=== PATIENT | female | born 1990 | race Caucasian/White ===

== ENCOUNTER 2023-12-19 10:20 | Observation (INO) | payer OTHER, SELFPAY ==
[2023-12-19] VITALS (40 sets, daily range): BP systolic 107–120; BP diastolic 66–78; PULSE 51–121; O2SAT 94–98; BMI 42.0
[2023-12-19 10:57] LABS: Glucose Point of Care 208 mg/dl (65-105)
[2023-12-19 10:57] LABS: Glucose Point of Care 230 mg/dl (65-105)
[2023-12-19] MEDS: INSULIN ASPART (*BKC) 100 UNITS/ML SUB-Q ×2 (11:03→12:13)
--- NOTE | 2023-12-19 11:05 | PC.NURSE ---
1030--Pt. states she did not check fasting glucose at home today r/t she ran out of strips. She states she had breakfast at approx. 0830 this am of 1 waffle and syrup. Accucheck at 1030 230 mg/dl, upon repeat check it was 208 mg/dl.
--- NOTE | 2023-12-19 11:08 | PC.NURSE ---
4536--Phone call to Dr. Duarte re: accucheck and fhr tracing. Orders to po hydrate, and give 5 units lispro subq X1 dose, then recheck sugar 1 hr. after insulin.
--- NOTE | 2023-12-19 11:48 | LDADM ---
This patient, Arabella Barrett, was admitted to Labor/Delivery/Recovery 118 on 12/19/23 at 10:20. Plans for labor, pain management and were discussed with patient. Patient/family oriented to hospital policies and general routines including ID bracelet, bed and alarms, visiting hours, pain management, procedures, bathroom and other care routines, personal items, smoking policy, room service/diet and guest tray routines, security routines, and visiting hours. Patient/Family are encouraged to report perceived risks to care and to ask questions if they do not understand what they are told or what they should do. See OBIX for further documentation.
[2023-12-19 12:04] LABS: Glucose Point of Care 173 mg/dl (65-105)
--- NOTE | 2023-12-19 12:44 | PC.NURSE ---
1203--Dr. Duarte on unit, notified of accucheck of 173 mg/dl. Orders for Lispro 4u subq X1 dose and recheck blood sugar an hour later.
[2023-12-19 13:17] LABS: Glucose Point of Care 93 mg/dl (65-105)
--- NOTE | 2023-12-21 10:41 | PM.OBTRLD ---
OB - Triage/Final Diagnosis Visit Information Comments/Additional reasons for admission: I have assessed the risk for this patient, Arabella Barrett, and determined that she would benefit from observation care. Evaluation Laboratory results: Laboratory Tests 12/19/23 12/19/23 12/19/23 10:37 10:39 12:02 POC Capillary Glucose 230 H 208 H 173 H 12/19/23 13:14 POC Capillary Glucose 93 Final Diagnosis (1) Hyperglycemia: Code(s): R73.9 - Hyperglycemia, unspecified Status: Acute (2) Gestational diabetes: Code(s): O24.419 - Gestational diabetes mellitus in , unspecified control Status: Acute
== END 2023-12-19 13:30 | disposition home or self-care (01) ==
PROVIDERS: Student in an Organized Health Care Education/Training Program; Admitting Provider Obstetrics & Gynecology; Visit Provider Obstetrics & Gynecology
DX: O24.419 Gestational diabetes mellitus in pregnancy, unspecified control (principal); Z3A.01 Less than 8 weeks gestation of pregnancy
CPT/HCPCS: 82948; G0378; G0379; J1815

== ENCOUNTER 2024-01-02 17:59 | Outpatient (CLI) | payer OTHER, SELFPAY ==
[2024-01-02] VITALS (7 sets, daily range): BP systolic 119–147; BP diastolic 78–91; PULSE 80–99
[2024-01-02 19:10] LABS: Basophils Percent Auto 0.3 % (0.2-1.2); Eosinophils Percent Auto 0.4 % (0-4.4); Hematocrit 37.8 % (37.0-47.0); Hemoglobin 12.6 g/dL (12.0-15.0); Immature Granulocyte Absolute 0.02 K/mm3 (0.00-0.031); Immature Granulocyte Percent A 0.3 % (0-0.5); Lymphocytes Absolute Auto 1.99 K/mm3 (0.9-3.2); Lymphocytes Percent Auto 25.1 % (18.3-44.2); Mean Corpuscular HGB Conc 33.3 g/dl (32-36); Mean Corpuscular Hemoglobin 28.4 pg (26-34); Mean Corpuscular Volume 85.3 fl (80-100); Monocytes Absolute Auto 0.4 K/mm3 (0.1-0.6); Monocytes Percent Auto 4.9 % (2.6-8.5); Neutrophils Absolute Auto 5.5 K/mm3 (1.3-6.7); Platelet Count Result 184 k/mm3 (150-375); Red Blood Count 4.43 M/mm3 (4.2-5.4); Red Cell Distribution Width 14.6 % (11.5-14.5); White Blood Count 7.9 K/mm3 (4.5-10.0)
[2024-01-02 19:18] LABS: Alanine Aminotransferase 44 U/L (6-35); Albumin Level 3.9 g/dL (3.5-5.1); Alkaline Phosphatase 151 U/L (38-126); Anion Gap 9 mmol/L (4-12); Aspartate Amino Transferase 41 U/L (14-36); Bilirubin,Total 0.5 mg/dL (0.2-1.3); Blood Urea Nitrogen 13 mg/dL (7-17); Calcium 8.9 mg/dL (8.4-10.2); Carbon Dioxide 20 mmol/L (22-30); Chloride 107 mmol/L (98-107); Estimated Glomerular Filt Rate > 60; Glucose 85 mg/dL (65-110); Potassium 4.1 mmol/L (3.4-5.0); Sodium 136 mmol/L (137-145)
[2024-01-02 19:24] LABS: Appearance Urine Clear (Clear); Bilirubin Urine Negative (Negative); Blood Urine Negative (Negative); Color Urine Yellow (Yellow); Glucose Urine UA Negative (Negative); Ketones Urine 3+ mg/dL (Negative); Leukocyte Esterase Ur Negative LEU/UL (Negative); Nitrate Urine Negative (Negative); Protein Urine Negative (Negative); Specific Grav Ur 1.013 (1.001-1.035); pH Urine 6.5 (5.0-9.0)
[2024-01-02 19:37] LABS: Add Urine Microscopic? NO
[2024-01-02 19:46] LABS: Total Protein Urine Random < 5 mg/dL; Ur Ttl Prot Creatinine Ratio < 0.09 mg/mg (0-0.20)
== END 2024-01-02 20:00 | disposition home or self-care (01) ==
LOC: ANHOBOP 18:03 → ANHOBPP 18:04
PROVIDERS: Obstetrics & Gynecology; Visit Provider Student in an Organized Health Care Education/Training Program
DX: O13.9 Gestational [pregnancy-induced] hypertension without significant proteinuria, unspecified trimester (principal)
CPT/HCPCS: 36415; 59025; 80053; 81003; 82570; 84156; 84550; 85025; 99199

== ENCOUNTER 2024-01-07 08:21 | Outpatient (RCR) | payer BC, MEDICAID, OTHER, SELFPAY ==
[2023-11-17 17:45] VITALS: BP 107/65; PULSE 80
[2023-11-20 17:04] VITALS: BP 103/66; PULSE 86
[2023-11-26 15:22] VITALS: BP 124/69; PULSE 80
[2023-11-30 16:44] VITALS: BP 114/78; PULSE 85
[2023-12-04 15:25] VITALS: BP 127/76; PULSE 94
[2023-12-08 16:34] VITALS: BP 109/71; PULSE 80
[2023-12-14 11:16] VITALS: BP 119/81; PULSE 105
[2023-12-23 15:00] VITALS: BP 118/78; PULSE 86
[2023-12-26 11:25] VITALS: BP 112/72; PULSE 95
[2024-01-02 16:21] VITALS: BP 142/83; PULSE 85
--- NOTE | ~2024-01-07 | US_ITS ---
US OB limited w BPP DATE: 12/26/2023 11:22 INDICATION: Heart decelerations. Gestational diabetes mellitus. Check ROGERS. 37 weeks 4 days estimated gestational age. TECHNIQUE: Real-time and color flow imaging and Doppler analysis COMPARISON: None FINDINGS: Live alarcon intrauterine gestational fetus in longitudinal lie, vertex presentation with heart rate of 150 bpm. Anterior placenta. Subjectively normal amount of amniotic fluid. Deepest amniotic fluid pocket measures 3.6 cm. Amniotic fluid index measures 13.7 cm, within normal range (5th percentile ROGERS: 7.3 cm; 95th percenti le ROGERS: 23.9 cm). BIOPHYSICAL PROFILE reported by binder technician: breathin out of 2 movement: 2 out of 2 tone: 2 out of 2 Amniotic fluid pocket: 2 out of 2 Total score: 8 out of 8 IMPRESSION: Normal biophysical profile score of 8 out of 8 Amniotic fluid index measures 13.7 cm, within normal range Reviewed, dictated and finalized at [facility]. Reviewed, dictated and finalized at location A.
[2024-01-07 08:52] VITALS: BP 118/71; PULSE 81
== END 2024-02-15 23:59 | disposition home or self-care (01) ==
LOC: ANHOBOP 08:21
PROVIDERS: Visit Provider Student in an Organized Health Care Education/Training Program
DX: O24.419 Gestational diabetes mellitus in pregnancy, unspecified control (principal); Z3A.32 32 weeks gestation of pregnancy; Z3A.33 33 weeks gestation of pregnancy; Z3A.34 34 weeks gestation of pregnancy; Z3A.35 35 weeks gestation of pregnancy; Z3A.37 37 weeks gestation of pregnancy; Z3A.38 38 weeks gestation of pregnancy; Z3A.39 39 weeks gestation of pregnancy
CPT/HCPCS: 59025; 76815; 76819

== ENCOUNTER 2024-01-07 08:57 | Outpatient (CLI) | payer OTHER, SELFPAY ==
[2024-01-07 09:21] LABS: Hematocrit 36.8 % (37.0-47.0); Hemoglobin 12.2 g/dL (12.0-15.0); Immature Platelet Fraction Pct 14.9 % (0.9-11.2); Mean Corpuscular HGB Conc 33.2 g/dl (32-36); Mean Corpuscular Hemoglobin 28.2 pg (26-34); Mean Corpuscular Volume 85.2 fl (80-100); Mean Platelet Volume 13.2 fl (7.4-10.4); Platelet Count Result 173 k/mm3 (150-375); Red Blood Count 4.32 M/mm3 (4.2-5.4); Red Cell Distribution Width 14.7 % (11.5-14.5); White Blood Count 6.9 K/mm3 (4.5-10.0)
[2024-01-07 11:38] LABS: Rapid Plasma Reagin Non-Reactive (NonReactive)
== END 2024-01-07 08:58 | disposition home or self-care (01) ==
LOC: ANHLAB 08:59
PROVIDERS: Visit Provider Obstetrics & Gynecology
DX: Z34.93 Encounter for supervision of normal pregnancy, unspecified, third trimester (principal); Z3A.00 Weeks of gestation of pregnancy not specified
CPT/HCPCS: 36415; 59025; 85027; 85055; 86592; 86850; 86900; 86901

== ENCOUNTER 2024-01-08 05:25 | Inpatient (IN) | payer OTHER, SELFPAY ==
[2024-01-08] VITALS (48 sets, daily range): BP systolic 91–136; BP diastolic 49–78; PULSE 51–92; RESP 13–18; TEMP 36.2–36.9; O2SAT 97–100; BMI 41.0
[2024-01-08] MEDS: ACETAMINOPHEN 500 MG TABLET 1000 MG PO (06:30)
[2024-01-08 06:39] LABS: Alanine Aminotransferase 28 U/L (6-35); Albumin Level 3.4 g/dL (3.5-5.1); Alkaline Phosphatase 128 U/L (38-126); Anion Gap 8 mmol/L (4-12); Aspartate Amino Transferase 27 U/L (14-36); Bilirubin,Total 0.4 mg/dL (0.2-1.3); Blood Urea Nitrogen 13 mg/dL (7-17); Calcium 8.6 mg/dL (8.4-10.2); Carbon Dioxide 19 mmol/L (22-30); Chloride 108 mmol/L (98-107); Estimated CRCL calculation 158 ml/min; Estimated Glomerular Filt Rate > 60; Glucose 83 mg/dL (65-110); Potassium 4.4 mmol/L (3.4-5.0); Sodium 135 mmol/L (137-145)
[2024-01-08] MEDS: ONDANSETRON INJ 4 MG/2 ML VIAL IV PUSH (06:49)
[2024-01-08] MEDS: FAMOTIDINE 20 MG/2 ML VIAL IV PUSH (06:49)
--- NOTE | 2024-01-08 07:02 | OBADM ---
This patient, Arabella Holley, admitted to the OB room Labor/Delivery/Recovery 120 for observation. Patient/family oriented to hospital policies and general routines including ID bracelet, bed and alarms, visiting hours, pain management, procedures, bathroom and other care routines, personal items, smoking policy, room service/diet, and visiting hours. Patient/Family are encouraged to report perceived risks to care and to ask questions if they do not understand what they are told or what they should do.
--- NOTE | 2024-01-08 07:11 | PM.IMHP ---
H&P: HPI History of Present Illness Date/Time: 01/08/24 07:11 Chief Complaint: Intrauterine at term T2DM prior desires permanent sterilization Narrative: 33 yo who presents for repeat and bilateral tubal ligation. Her pregnancyis complicated by type 2 DM on insulin and prior . Review of Systems Cardiovascular: Cardiovascular: Denies chest pain, Denies leg edema, Denies palpitations, Denies dyspnea and Denies dyspnea on exertion Respiratory: Respiratory: Denies cough, Denies dyspnea and Denies dyspnea on exertion Gastrointestinal: Gastrointestinal: Denies abdominal pain, Denies constipation, Denies diarrhea, Denies nausea and Denies vomiting Genitourinary: Genitourinary: Denies hematuria, Denies urinary frequency, Denies dysuria, Denies pelvic pain, Denies urinary incontinence and Denies vaginal discharge Neurologic: Reports system reviewed and no additional complaints, except as documented Psychiatric: Psychiatric: Reports no additional psychiatric complaints Endocrine: Endocrine: Denies palpitations PMFSH Past Medical History Medical History ADHD Gestational diabetes Surgical History Surgical History History of delivery x 3 History of cholecystectomy History of wisdom tooth extraction Family History Family History Grandparent Colon polyp Social History Social History Smoking status: Never smoker Alcohol intake: never Substance use: never Do You Feel Safe in your Home?: Yes Lack of Transportation: No Lack of Food: Never True Current Housing: I Have Housing Concerned About Future Housing: No Difficulty Paying Gas/Electric Bills: No Difficulty Paying for Meds: No Currently Unemployed: No Education: High School Diploma/GED Difficulty w/ Childcare or Family Care: No Living arrangements: with family Occupation/Education: unemployed Gender identity (if verbalized by the patient): Female Sexual Orientation (if Verbalized by the Patient): Straight or Heterosexual Spiritual care concerns: No Meds Home Medications and Allergies Home Medications Medication Instructions Recorded Confirmed Type aspirin 81 mg tablet,delayed 81 mg PO DAILY 11/12/23 01/04/24 History release (Adult Low Dose Aspirin) insulin NPH isoph U-100 human 100 22 unit subcut DAILY 11/12/23 01/04/24 History unit/mL (3 mL) subcutaneous pen (Humulin N NPH U-100 Insulin KwikPen) vits no.126-ferrous fum 1 tablet PO DAILY 11/12/23 01/04/24 History 28 mg iron-folic acid 800 mcg tablet (Classic ) hydroxyzine HCl 10 mg tablet 10 mg PO TID PRN anxiety #30 tabs 11/26/23 01/04/24 Rx Allergies Allergy/AdvReac Type Severity Reaction Status Date / Time No Known Allergies Allergy Verified 01/04/24 15:45 Vital Signs Vital Signs - 24 hr 01/08/24 06:18 01/08/24 06:30 01/08/24 06:45 Pulse Rate 64 65 69 Blood Pressure 98/63 L 117/67 136/78 Oxygen Delivery 01/08/24 06:58 Pulse Rate Blood Pressure Oxygen Delivery Room Air Exam Const: General: no acute distress Eyes: EOM: EOMs intact bilaterally Neck: Neck: supple Thyroid: thyroid normal Chest: Breast/axilla inspection: normal inspection of the breasts Breast/axilla palpation: normal palpation of the breasts, normal palpation of the axillae and no axillary lymphadenopathy Resp: Effort & Inspection: normal respiratory effort Auscultation: clear to auscultation bilaterally Cardio: Rate: regular rate Rhythm: regular rhythm GI: Inspection: non-distended and other (Gravid) GI Palp: Yes Soft to palpation, No Tenderness to palpation present (GI) and No Guarding due to palpation present (GI) Auscultation: normal bowel keerthi
--- NOTE | 2024-01-08 07:14 | WPDHPUPDATE1 ---
History and Physical Update Update Date/Time: 01/08/24 07:14 33 yo who presents for repeat and bilateral tubal ligation. History and Physical has been reviewed, including an updated exam of the patient. There are NO changes in the patient's condition. Risks, benefits, and alternatives have been discussed and questions answered. Patient agrees to proceed with procedure.
[2024-01-08 07:18] LABS: HIV 1/2 Ab P24 Ag Result Negative (Negative)
--- NOTE | 2024-01-08 08:47 | W.PM.PROC2 ---
Procedure Note - Detailed Date of Procedure 01/08/24 Pre-op Diagnosis Cesareen Section Post-op Diagnosis Same Procedure Performed repeat bilateral tubal ligation Surgeon Michael Mendiola MD Anesthesia Spinal Findings Fascia and peritoneum adherent Description of Procedure The patient was taken to the operating room where epidural anesthesia was found to be adequate. She was then prepped and draped in the usual sterile fashion in the dorsal supine position with a leftward tilt. A Pfannenstiel skin incision was then made with the scalpel and carried through to the underlying layer of fascia. The fascia was then incised in the midline and the incision extended laterally with the Mg scissors. The superior aspect of the fascia was then grasped with the Elly clamps, elevated, and the underlying rectus muscles dissected off bluntly and sharply. Attention was then turned to the inferior aspect of this incision which, in a similar fashion, was grasped, tented up with the Elly clamps, and the rectus muscles dissected off both bluntly and sharply. The rectus muscles were then in the midline, and the peritoneum identified, tented up, and entered sharply with the Metzenbaum scissors. The peritoneal incision was then extended superiorly and inferiorly with good visualization of the bladder. An yu ring retractor was placed for better visualization. The lower uterine segment incised in a low, transverse fashion with the scalpel. The uterine incision was then extended laterally bluntly. The bladder blade was removed and the ?s head delivered atraumatically. The nose and mouth were suctioned with the bulb suction, and the remainder of the was delivered atraumatically. The cord was clamped and cut. The infant was handed off to the waiting pediatricians (staff). Cord gasses were sent. The placenta was then removed manually, the uterus exteriorized, and cleared of all clots and debris. The uterine incision was repaired with 0 monocryl in a running fashion. A second imbricating layer of 0-monocryl was also placed. There were several areas on the hysterotomy that were oozing adn were made hemostatic with figure of eight sutures. Both fallopian tubes were identified and followed out to the fimbrae bilaterally. The left fallopian tube was grasped with Babcocks and elevated to visualize the mesosalpinx. The fallopian tubes were then cauterized and ligated along the inferior mesosalpinx to the uterine corpus. The fallopian was then completely transected and sent for pathology. The same procedure was repeated for the right fallopian tube. The uterus was returned to the abdomen. The uterus was then reinspected to ensure hemostasis as were all subfascial tissues. The peritoneum was re-approximated with vicryl in a running fashion. The fascia was reapproximated with 0 vicryl in a running fashion. The subcutaneous layer was copiously irrigated to clear any clots or debris. The subcutaneous tissue was reapproximated using 3-0 Vicryl interuppted sutures. fashion. The skin was closed with Stables The patient tolerated the procedure well. Sponge, lap and needle counts were correct times three. The patient was taken to the recovery room in stable condition. Urine Output 150 Drains No Packing No Pathology None sent Complications No immediate complications Condition Stable Disposition Floor ( ) [facility] Billing Surgery - Charge Forward: Surgery Billing
[2024-01-08 10:36] LABS: Glucose Point of Care 90 mg/dl (65-105)
--- NOTE | 2024-01-08 11:03 | OBPPTRN ---
Patient transferred to post room #290 via stretcher. Support person present. Oriented to unit, room, information board, rooming in, admission packet and security measures. Patient verbalizes understanding.
[2024-01-08] MEDS: diphenhydrAMINE HCl INJ 50 MG/ML VIAL 25 MG IV PUSH (11:56)
--- NOTE | 2024-01-08 12:55 | PC.NURSE ---
Mother verbalizes she is able to independently latch with appropriate positioning and alignment. She denies any nipple discomfort and is responsively . Infant has fed on the left breast for 5 minutes. Assisted mother to position infant on the right breast in cradle hold. Mother states she has breastfed her other children successfully. She hopes to work on latching infant in football position once she is up and moving a little easier. Infant latches appropriately and suckles with frequent swallowing. blood sugars are stable and being monitored for LGA. Mother declines any additional assistance or education at this time. Mother is encouraged to call for assistance if her doesn?t latch, pain with latching, questions or concerns. Mother voiced understanding of information shared along with the mom/baby guide for an additional resource. Reported to the Primary RN.
[2024-01-08] MEDS: DEXTROSE 5%/0.45% SOD CHL 1,000 ML 125 ML IV CONT (13:21)
--- NOTE | 2024-01-08 13:25 | PC.NURSE ---
Patient received her entire pitocin bag. It was infused at 1321. Labor RN did not document administration so the infusion assessment can not be completed.
[2024-01-08] MEDS: ACETAMINOPHEN 325 MG TABLET 650 MG PO ×2 (14:10→19:32)
[2024-01-08] MEDS: KETOROLAC 15 MG/ML VIAL (*BKC) IV PUSH ×2 (14:10→19:32)
[2024-01-08] MEDS: SIMETHICONE 80 MG TAB.CHEW PO ×2 (14:10→17:10)
[2024-01-08 14:16] LABS: Glucose Point of Care 93 mg/dl (65-105)
[2024-01-08] MEDS: DOCUSATE SODIUM 100 MG CAPSULE PO (17:10)
[2024-01-08 19:39] LABS: Glucose Point of Care 160 mg/dl (65-105)
[2024-01-09] MEDS: ACETAMINOPHEN 325 MG TABLET 650 MG PO ×3 (02:09→19:35)
[2024-01-09] MEDS: KETOROLAC 15 MG/ML VIAL (*BKC) IV PUSH (02:09)
[2024-01-09 04:52] LABS: Basophils Percent Auto 0.4 % (0.2-1.2); Eosinophils Percent Auto 0.4 % (0-4.4); Hematocrit 29.4 % (37.0-47.0); Hemoglobin 9.3 g/dL (12.0-15.0); Immature Granulocyte Absolute 0.02 K/mm3 (0.00-0.031); Immature Granulocyte Percent A 0.2 % (0-0.5); Immature Platelet Fraction Pct 13.1 % (0.9-11.2); Lymphocytes Absolute Auto 1.67 K/mm3 (0.9-3.2); Lymphocytes Percent Auto 20.4 % (18.3-44.2); Mean Corpuscular HGB Conc 31.6 g/dl (32-36); Mean Corpuscular Hemoglobin 28.4 pg (26-34); Mean Corpuscular Volume 89.9 fl (80-100); Mean Platelet Volume 13.3 fl (7.4-10.4); Monocytes Absolute Auto 0.4 K/mm3 (0.1-0.6); Monocytes Percent Auto 4.9 % (2.6-8.5); Neutrophils Absolute Auto 6.1 K/mm3 (1.3-6.7); Neutrophils Percent Auto 73.7 % (45.5-73.1); Platelet Count Result 143 k/mm3 (150-375); Red Blood Count 3.27 M/mm3 (4.2-5.4); Red Cell Distribution Width 14.9 % (11.5-14.5); White Blood Count 8.2 K/mm3 (4.5-10.0)
[2024-01-09 05:47] LABS: Glucose Point of Care 97 mg/dl (65-105)
--- NOTE | 2024-01-09 06:45 | PC.NURSE ---
PT introductions made and plan of care discussed per post op c section, pain management, breast feeding, daily care activities. PT and spouse both recipients of such instructions and no barriers to learning identified at this time. PT received instructions per one to one discussion, mom baby care guide and demonstrations. PT verbalized understanding of such care.
[2024-01-09] MEDS: SIMETHICONE 80 MG TAB.CHEW PO ×3 (06:53→16:02)
[2024-01-09] MEDS: IBUPROFEN 600 MG TABLET PO ×2 (06:54→19:34)
[2024-01-09 08:00] VITALS: BP 110/64; PULSE 79; RESP 18; RESP 20; TEMP 36.6; O2SAT 100
--- NOTE | 2024-01-09 08:07 | PM.OBPNVD ---
OB - PN: Subj Subjective Date/time seen: 01/09/24 08:07 Patient comments: no complaints, pain well controlled, tolerating diet and flatus present OB - PN: Obj Data Labs 01/09/24 04:15 01/08/24 06:18 Labs: Laboratory Results - last 24 hr 01/08/24 01/08/24 01/08/24 10:17 14:09 19:35 WBC RBC Hgb Hct MCV MCH MCHC RDW Plt Count MPV Immature Gran % (Auto) Neut % (Auto) Lymph % (Auto) Buchanan % (Auto) Eos % (Auto) Baso % (Auto) Lymph # (Auto) Buchanan # (Auto) Eos # (Auto) Baso # (Auto) Abs Immat Gran (auto) Absolute Neuts (auto) Absolute Nucleated RBC Nucleated RBC % % Immature Plt Fraction POC Capillary Glucose 90 93 160 H 01/09/24 01/09/24 04:15 05:44 WBC 8.2 RBC 3.27 L Hgb 9.3 L Hct 29.4 L MCV 89.9 D MCH 28.4 MCHC 31.6 L RDW 14.9 H Plt Count 143 L MPV 13.3 H Immature Gran % (Auto) 0.2 Neut % (Auto) 73.7 H Lymph % (Auto) 20.4 Buchanan % (Auto) 4.9 Eos % (Auto) 0.4 Baso % (Auto) 0.4 Lymph # (Auto) 1.67 Buchanan # (Auto) 0.4 Eos # (Auto) 0.0 Baso # (Auto) 0.0 Abs Immat Gran (auto) 0.02 Absolute Neuts (auto) 6.1 Absolute Nucleated RBC 0.000 Nucleated RBC % 0.0 % Immature Plt Fraction 13.1 H POC Capillary Glucose 97 OB - PN A/P Plan day: 1 Plan: routine care Comments: patient doing well H/H 9.10/15, asymptomatic. will continue iron BID afebrile, VSS incision C/D/I montalvo removed, voiding spontaneously will continue to monitor blood sugars. Discussed starting metformin 500 mg daily pt desire circumcision. Risks, benefits, alternatives discussed. continue routine post op care Time Spent With Patient Time: Total time spent is greater than 50% in coordination of care (as documented) at patient's floor/unit and/or counseling patient: Time with patient: less than 15 minutes Review of Systems Constitutional: Constitutional: Reports no additional constitutional complaints Cardiovascular: Cardiovascular: Reports no additional cardiovascular complaints Respiratory: Respiratory: Reports no additional respiratory complaints Gastrointestinal: Gastrointestinal: Reports no additional gastrointestinal complaints Genitourinary: Genitourinary: Reports no additional female genitourinary complaints Exam Const: General: comfortable and no acute distress Resp: Effort & Inspection: normal respiratory effort Auscultation: clear to auscultation bilaterally Cardio: Rate: regular rate GI: GI Palp: Yes Soft to palpation, Yes Tenderness to palpation present (GI) (around incision ) and No Guarding due to palpation present (GI) Auscultation: normal bowel sounds Other: incision C/D/I, covered with Dermabond Psych: Appearance: grossly normal Mental Status: mental status grossly normal Affect: normal affect
[2024-01-09] MEDS: metFORMIN HCL XR 500 MG TAB.SR.24H (10:29)
[2024-01-09] MEDS: DOCUSATE SODIUM 100 MG CAPSULE PO ×2 (10:45→16:02)
[2024-01-09] MEDS: POLYSACCHARIDE IRON COMPLEX 150 MG CAPSULE PO ×2 (10:45→16:02)
[2024-01-09] MEDS: MULTIVIT/MIN/PREN/FOL AC/IRON TABLET 1 TAB PO (10:46)
[2024-01-09 10:53] LABS: Glucose Point of Care 153 mg/dl (65-105)
[2024-01-09] MEDS: LIDOCAINE 5% PATCH 1 PATCH TRANSDERM (10:58)
[2024-01-09] MEDS: HYDROcodone/acetaminophen (*CRX) 10-325 MG TABLET 1 TAB PO (13:26)
[2024-01-09 13:55] LABS: Glucose Point of Care 91 mg/dl (65-105)
--- NOTE | 2024-01-09 16:36 | WPDANLDPN2 ---
Anes-Prog Note L&D Date/Time: 01/09/24 16:36 Comfortable throughout: section Neuraxial method: spinal Epidural/Spinal procedure site: tender Neuro status: Neuro function grossly intact. Cardiovascular status: normal Respiratory status: normal Airway patency: baseline Mental status: baseline Post-Op hydration status: normal Vital Signs: Last Vital Signs Temp 97.9 F 01/09/24 08:00 Pulse 79 01/09/24 08:00 Resp 20 01/09/24 08:00 BP 110/64 01/09/24 08:00 Pulse Ox 100 01/09/24 08:00 O2 Del Method Room Air 01/09/24 08:00 Pain score (VAS): 4 I/O: Intake & Output 01/09/24 01/09/24 01/09/24 07:59 15:59 23:59 Intake Total 500 960 Output Total 1600 Balance -1100 960 Post-procedural complaints: pruritis moderate, treatment effective Patient feedback: Patient satisfied with anesthetic care.
--- NOTE | 2024-01-09 16:37 | WPDANLDNPN2 ---
Anes-Prog Note L&D-Neuraxial Date/Time: 01/09/24 16:37 Neuraxial medications: intrathecal PF morphine Opiod-related complaints: pruritis moderate, treatment effective Patient feedback: Patient satisfied with post-operative pain management.
[2024-01-09 19:45] LABS: Glucose Point of Care 148 mg/dl (65-105)
[2024-01-09 20:00] VITALS: BP 125/73; PULSE 83; RESP 18; TEMP 36.7; O2SAT 98
[2024-01-10] MEDS: IBUPROFEN 600 MG TABLET PO ×2 (01:47→07:47)
[2024-01-10] MEDS: ACETAMINOPHEN 325 MG TABLET 650 MG PO ×2 (01:48→07:46)
[2024-01-10 06:00] LABS: Glucose Point of Care 99 mg/dl (65-105)
[2024-01-10 07:30] VITALS: BP 119/83; PULSE 82; RESP 16; TEMP 37.2; O2SAT 99
[2024-01-10] MEDS: POLYSACCHARIDE IRON COMPLEX 150 MG CAPSULE PO (07:47)
[2024-01-10] MEDS: metFORMIN HCL 500 MG TABLET PO (07:47)
[2024-01-10] MEDS: SIMETHICONE 80 MG TAB.CHEW PO (07:48)
[2024-01-10] MEDS: MULTIVIT/MIN/PREN/FOL AC/IRON TABLET 1 TAB PO (07:48)
[2024-01-10] MEDS: DOCUSATE SODIUM 100 MG CAPSULE PO (07:48)
--- NOTE | 2024-01-10 08:51 | PM.OBDSVD ---
DS: Admitting Diagnosis Discharge Date 01/10/24 Admitting Diagnosis intrauterine at term prior type 2 DM DS: Discharge Diagnosis Discharge Diagnosis (1) Delivery by section: Status: Acute OB - DS: Summary OB Procedures : None OB Procedures Intrapartum: OB Procedures: : None Peripartum Data Delivery Method: Section Procedures: Procedures Operation Date: 01/08/24 07:30 Actual Procedure Side Surgeon p Repeat Section with Tubal Ligation Not Applicable Michael Mendiola MD complications: none Status at Discharge Functional status at discharge: independent ambulation Overall status at discharge: patient is progressing back to baseline Time Spent with Patient Time attestation: Total time spent providing and/or coordinating discharge services: Time spent: Less than 30 minutes Exam Const: General: comfortable and no acute distress Resp: Effort & Inspection: normal respiratory effort Auscultation: clear to auscultation bilaterally Cardio: Rate: regular rate GI: Inspection: non-distended GI Palp: Yes Soft to palpation, No Firmness to palpation present (GI), Yes Tenderness to palpation present (GI) (mild tenderness over incision ) and No Guarding due to palpation present (GI) Auscultation: normal bowel sounds Psych: Appearance: grossly normal Mental Status: mental status grossly normal DS: Data Data Completed and Pending Pending studies at discharge: Pending at discharge 01/08/24 09:06 Surgical [PTH] Routine Labs on day of discharge: Labs from last 24 hours 01/10/24 01/09/24 01/09/24 05:58 19:23 13:51 POC Capillary Glucose 99 148 H 91 01/09/24 10:51 POC Capillary Glucose 153 H Discharge Plan Discharge Discharging Clinician: Michael Mendiola Patient Disposition: Home, Self-Care Activity: as tolerated and pelvic rest Diet: diabetic Patient Instructions: Antibiotic Form, (DC) Stand Alone Forms: General Discharge Information Follow-up/Referrals: Michael Mendiola MD [Physician] - 1 Week (Staple removal) Discharge Medications: New oxycodone-acetaminophen 5-325 mg tablet 1 tablet PO Q6H PRN (Reason: pain) Qty: 28 0RF metformin 500 mg tablet 500 mg PO BID Qty: 60 1RF ibuprofen 600 mg tablet 600 mg PO Q6H PRN (Reason: pain) Qty: 30 0RF Continued Classic 28 mg iron- 800 mcg tablet 1 tablet PO DAILY aspirin [Adult Low Dose Aspirin] 81 mg tablet,delayed release (DR/EC) 81 mg PO DAILY Humulin N NPH Insulin KwikPen 100 unit/mL (3 mL) insulin pen 22 unit subcut DAILY hydroxyzine HCl 10 mg tablet 10 mg PO TID PRN (Reason: anxiety) Qty: 30 1RF Date of admission: 01/08/24 05:25 Primary Care Provider: PHYSICIAN,PARLIAMENTARY COUNSEL Admitting Provider: Michael Mendiola Attending physician on admission: Michael Mendiola Condition: Stable
[2024-01-12 09:24] VITALS: BP 128/82; PULSE 76; RESP 18; TEMP 37.2; O2SAT 100
== END 2024-01-10 11:00 | disposition home or self-care (01) | DRG 539 ==
LOC: ANHLDR 06:07 → ANHOB2 11:13
PROVIDERS: Admitting Provider Student in an Organized Health Care Education/Training Program; Visit Provider Student in an Organized Health Care Education/Training Program
PROC: 10D00Z1 Extraction of Products of Conception, Low, Open Approach (ICD-10-PCS; CPT 59514; principal; 2024-01-08 07:30)
DX: O34.211 Maternal care for low transverse scar from previous cesarean delivery (principal); Z37.0 Single live birth; Z3A.40 40 weeks gestation of pregnancy; O24.12 Pre-existing type 2 diabetes mellitus, in childbirth; O77.0 Labor and delivery complicated by meconium in amniotic fluid; Z30.2 Encounter for sterilization
CPT/HCPCS: 36415; 80053; 82948; 85025; 85055; 86703; 88302; A9270; G0432; J1200; J1885; J2250; J2274; J2405

== ENCOUNTER 2024-06-17 10:15 | Outpatient (CLI) | payer OTHER, SELFPAY ==
--- NOTE | ~2024-06-17 | XR_ITS ---
XR shoulder LT min 2V DATE: 06/17/2024 10:29 INDICATION: Left shoulder pain, limited range of motion. No injury. TECHNIQUE: 4 views COMPARISON: None FINDINGS: No fracture or dislocation, periosteal reaction or bone destruction. Normal alignment and j oint space preservation preservation of acromioclavicular and glenohumeral joints. No abnormal soft t issue calcification. IMPRESSION: Negative Reviewed, dictated and finalized at location A. HR DIVERSITY IMPRESSION: Negative
== END 2024-06-17 10:16 | disposition home or self-care (01) ==
LOC: ANHIMG 10:20
PROVIDERS: PCP Nurse Practitioner Family; Visit Provider Nurse Practitioner Family
DX: M25.512 Pain in left shoulder (principal)
CPT/HCPCS: 73030